=== PATIENT | male | born 1980 | race American Indian/Alaskan Native ===

== ENCOUNTER 2019-11-20 08:24 | Emergency (ER) | payer SELFPAY ==
[2019-11-20 08:32] VITALS: BP 144/90
== END 2019-11-20 09:41 | disposition left against medical advice (07) ==
LOC: ED 08:24
DX: R11.2 Nausea with vomiting, unspecified (principal); Z53.21 Procedure and treatment not carried out due to patient leaving prior to being seen by health care provider

== ENCOUNTER 2020-08-11 19:02 | Emergency (ER) | payer SELFPAY | END 2020-08-11 23:19 | disposition left against medical advice (07) | LOC: ED 19:02 | DX: H92.02 Otalgia, left ear (principal); Z53.21 Procedure and treatment not carried out due to patient leaving prior to being seen by health care provider ==